=== PATIENT | female | born 1995 | race Two or more races ===

== ENCOUNTER 2021-05-16 14:08 | Emergency (ER) | payer OTHER ==
[~2021-05-16] VITALS: Ht 160 cm; Wt 73.2 kg
[2021-05-16 15:21] VITALS: BP 149/78
== END 2021-05-16 16:49 | disposition home or self-care (01) ==
LOC: ED 16:39
DX: L73.9 Follicular disorder, unspecified (principal)
CPT/HCPCS: 99283